=== PATIENT | female | born 1955 | race Caucasian/White ===

== ENCOUNTER 2018-06-08 15:36 | Observation (INO) | payer MEDICAID ==
[2018-06-08] MEDS ORDERED: Labetalol 5 mg/ml Inj 20ML IV STA ×2 (16:06→17:34)
[2018-06-08] MEDS ORDERED: Sodium Chloride 0.9% 1,000 ML IV SCH (16:15)
[2018-06-08] MEDS ORDERED: Labetalol 5mg/ml (4ml) ONE (16:23)
--- NOTE | 2018-06-08 16:36 | ED PDOC ---
Arrival/HPI - General Chief Complaint: Chest Pain Time Seen by Provider: 06/08/18 15:38 Historian: Patient - History of Present Illness Narrative History of Present Illness (Text): 06/08/18 16:31 62 year old female, whose past medical history includes hypertension, hyperlipidemia, diabetes, and rheumatoid arthritis, presents to the emergency department for evaluation of chest pain, from earlier in the day. Patient states she woke up this morning and felt chest pain to the left side of her chest, with associated lightheadedness. Patient states pain only lasted a few seconds, and was very sharp. Patient states the pain occurred again around 13:00. Patient informs of fatigue for the past 2 weeks. Patient also informs of left lower back pain that radiates down her leg. Patient states she has been having foul smelling urine, urinary frequency changes, and burning upon urination. Patient denies any unilateral weakness, numbness, headache, dizziness, visual complaints, trouble speaking, gait issues, or any other com plaints. Time/Duration: 4-6 hours Symptom Course: Unchanged Quality: Stabbing Past Medical History - Provider Review Nursing Documentation Reviewed: Yes - Cardiac Hx Cardiac Disorders: Yes Hx Hypertension: Yes - Pulmonary Hx Respiratory Disorders: No - Neurological Hx Neurological Disorder: No - HEENT Hx HEENT Disorder: No - Renal Hx Renal Disorder: No - Endocrine/Metabolic Hx Endocrine Disorders: Yes Hx Diabetes Mellitus Type 2: Yes - Hematological/Oncological Hx Blood Disorders: No - Integumentary Hx Dermatological Disorder: No - Musculoskeletal/Rheumatological Hx Musculoskeletal Disorders: Yes Hx Rheumatoid Arthritis: Yes - Gastrointestinal Hx Gastrointestinal Disorders: No - Genitourinary/Gynecological Hx Genitourinary Disorders: No - Psychiatric Hx Psychophysiologic Disorder: No Hx Substance Use: No Family/Social History - Physician Review Nursing Documentation Reviewed: Yes Family/Social History: No Known Family HX Smoking Status: Never Smoked Hx Alcohol Use: No Hx Substance Use: No Allergies/Home Meds Allergies/Adverse Reactions: Allergies No Known Allergies Allergy (Verified 06/08/18 15:45) Home Medications: Home Meds Medication Instructions Recorded Confirmed Metoprolol Tartrate [Lopressor] 50 mg PO BID 06/08/18 06/08/18 Simvastatin 10 mg PO DAILY 06/08/18 06/08/18 metFORMIN [glucOPHAGE] 500 mg PO BID 06/08/18 06/08/18 Review of Systems - Physician Review All systems were reviewed & negative as marked: Yes - Review of Systems Genitourinary Female: Dysuria, Frequency, Other (foul smelling urine) Neurological: absent: Headache, Dizziness, Focal Weakness (no unilateral weakness), Gait Changes, Speech Changes, Other (no numbness) Physical Exam Vital Signs Reviewed: Yes Vital Signs Temp Pulse Resp BP Pulse Ox 06/08/18 16:28 85 190/105 H 06/08/18 15:45 98.9 F 77 17 224/104 H 98 Temperature: Afebrile Blood Pressure: Hypertensive Pulse: Regular Respiratory Rate: Normal Appearance: Positive for: Well-Appearing, Non-Toxic, Comfortable Pain Distress: None Mental Status: Positive for: Alert and Oriented X 3 - Systems Exam Head: Present: Atraumatic, Normocephalic Pupils: Present: PERRL Extroacular Muscles: Present: EOMI Conjunctiva: Present: Normal Mouth: Present: Moist Mucous Membranes Neck: Present: Normal Range of Motion Respiratory/Chest: Present: Clear to Auscultation, Good Air Exchange. No: Respiratory Distress, Accessory Muscle Use Cardiovascular: Present: Regular Rate and Rhythm, Normal S1, S2. No: Murmurs Abdomen: No: Tenderness, Distention, Peritoneal Signs Back: Present: Normal Inspection Upper Extremity: Present: Normal Inspection. No: Cyanosis, Edema Lower Extremity: Present: Normal Inspection. No: Edema Neurological: Present: GCS=15, CN II-XII Intact, Speech Normal Skin: Present: Warm, Dry, Normal Color. No: Rashes Psychiatric: Present: Alert, Oriented x 3, Normal Insight, Normal Concentration Medical Decision Making ED Course and Treatment: 06/08/18 16:44 Impression: 62 year old female presents with chest pain, and urinary symptoms. Differential Diagnosis included but are not limited to: Chest pain- rule out ACS and hypertensive urgency Back pain- rule out sciatica vs kidney stone/ pyelonephritis and UTI Plan: -- CT ABD& Pelvis -- CT Head -- EKG -- Chest X-ray -- Labetolol IV -- Urinalysis -- Reassess and disposition Prior Visits: Notes and results from previous visits were reviewed. Progress Notes: 06/08/18 17:11 Patient improved after Labetolol. Glucose elevated and will treat with Insulin. 06/08/18 17:34 Orthostatics were completed. Patient felt dizzy when she stood up. Her blood pressure included to 199/95. Labetolol IV ordered. CT results pending. Case discussed with Dr. Laura who will accept patient to his service. 06/08/18 18:43 EXAM: CT Head without Intravenous Contrast. IMPRESSION: 1. There is generalized parenchymal atrophy noted as demonstrated by symmetrical dilatation of ventricles and sulci. 2. Chronic periventricular and subcortical microvascular disease is seen. 3. No acute intracranial pathology. Electronically signed on Jun 08, 2018 6:41:30 PM EST by: Kimani Earl M.D., [place] Certified By ABR & CBC[employer] Fellowship Trained MRI and CT Specialist 06/08/18 18:52 EXAM: CT Abdomen and Pelvis Without IV contrast IMPRESSION: 1. Enteritis. Infectious and inflammatory etiologies are considered. Consider consultation with GI service. 2. Fibroid uterus. 3. No urinary calculi. Electronically signed on Jun 08, 2018 6:50:26 PM EST by: Kimani Earl M.D., [place] Certified By ABR & CBC[employer] Fellowship Trained MRI and CT Specialist - RAD Interpretation Radiology Orders: 06/08/18 16:04 CHEST PORTABLE [RAD] Stat 06/08/18 16:06 HEAD W/O CONTRAST [CT] Stat 06/08/18 16:26 ABD & PELVIS W/O PO OR IV CONT [CT] Stat - Medication Orders Current Medication Orders: Discontinued Medications Labetalol HCl (Trandate) 20 mg IV STAT STA Stop: 06/08/18 16:07 Last Admin: 06/08/18 16:28 Dose: 20 mg eMAR Start Stop Document 06/08/18 16:28 GMI (Rec: 06/08/18 16:29 [id number]) Intravenous Solution Start Date 06/08/18 Start Time 16:28 End Date 06/08/18 End time 16:35 Total Infusion Time 7 MAR Pulse and Blood Pressure Document 06/08/18 16:28 GMI (Rec: 06/08/18 16:29 [id number]) Pulse Pulse Rate (60-90) 85 Blood Pressure Blood Pressure (100/60-150/90) 190/105 - Scribe Statement The provider has reviewed the documentation as recorded by the [facility] Provider Scribe Attestation: All medical record entries made by the Scribe were at my direction and personally dictated by me. I have reviewed the chart and agree that the record accurately reflects my personal performance of the history, physical exam, medical decision making, and the department course for this patient. I have also personally directed, reviewed, and agree with the discharge instructions and disposition. Disposition/Present on Arrival - Present on Arrival Any Indicators Present on Arrival: Yes History of DVT/PE: No History of Uncontrolled Diabetes: Yes Urinary Catheter: No History of Decub. Ulcer: No History Surgical Site Infection Following: None - Disposition Have Diagnosis and Disposition been Completed?: Yes Diagnosis: Hypertensive urgency, Uncontrolled diabetes mellitus, Chest pain Disposition: HOSPITALIZED Disposition Time: 18:19 Patient Plan: Admission Condition: FAIR
[2018-06-08 16:47] LABS: URINE BILIRUBIN NEGATIVE (NEGATIVE); URINE BLOOD NEGATIVE (NEGATIVE); URINE GLUCOSE (UA) >=1000 mg/dL (NEGATIVE); URINE LEUKOCYTE ESTERASE NEGATIVE Leu/uL (NEGATIVE); URINE PROTEIN NEGATIVE mg/dL (<30 mg/dL); URINE UROBILINOGEN 0.2 E.U./dL (<1 E.U./dL)
[2018-06-08 16:47] LABS: BASO # 0.02 K/mm3 (0.0-2.0); BASO % 0.2 % (0.0-3.0); EOS # 0.2 (0.0-0.7); EOS % 1.6 % (1.5-5.0); GRAN # 6.55 (1.4-6.5); GRAN % 61.7 % (50.0-68.0); HEMOGLOBIN 13.4 g/dL (12.0-16.0); LYMPH # 3.2 (1.2-3.4); LYMPH % 29.9 % (22.0-35.0); MEAN CELL VOLUME 93.9 fl (80.0-105.0); MEAN CORPUSCULAR HEMOGLOBIN 31.7 pg (25.0-35.0); MEAN CORPUSCULAR HGB CONC 33.8 g/dl (31.0-37.0); MEAN PLATELET VOLUME 9.6 fl (7.0-11.0); MONO # 0.7 (0.1-0.6); MONO % 6.6 % (1.0-6.0); RBC 4.23 10^6/uL (3.5-6.1); WHITE BLOOD COUNT 10.6 10^3/uL (4.5-11.0)
[2018-06-08 16:48] LABS: URINE APPEARANCE CLEAR (CLEAR); URINE COLOR YELLOW (YELLOW)
[2018-06-08 16:52] LABS: TROPONIN I < 0.01 ng/mL
[2018-06-08 16:59] LABS: ALB/GLOB RATIO 1.1 (1.1-1.8); ALBUMIN 4.1 g/dL (3.0-4.8); ALT/SGPT 25 U/L (7-56); AST/SGOT 28 U/L (14-36); BLOOD UREA NITROGEN 20 mg/dL (7-21); CALCIUM 9.3 mg/dL (8.4-10.5); GFR NON-AFRICAN AMERICAN > 60
[2018-06-08] MEDS ORDERED: Insulin Regular 1 UNITS/0.01 ML ML SC STA (17:15)
--- NOTE | 2018-06-08 19:30 | CP.PCM.HP ---
<AlbertKaroander - Last Filed: 06/08/18 19:52> History of Present Illness - History of Present Illness History of Present Illness: PGY1 History and Physical Exam Note for Attending Physician Dr. Beltrán Patient is a 62-year-old Female with PMH Type 2 Diabetes Mellitus, Hypertension, Hyperlipidemia, Rheumatoid Arthritis, who presents to [facility] ED with complaint of chest pain that started this morning. Patient states the pain came on suddenly this morning and was intermittent. Patient localized the pain to the left pectoralis muscle, was sharp in quality, and quantified the pain at 9/10. Patient also complains of generalized abdominal pain that is constant 9/10 and described it as feeling "bloated." Patient states she takes Metformin and gets diarrhea regularly, so she took half of the dose today. Of note, patient also complaints of left-sided low back pain that radiates down her leg. Patient states her back pain has been constant and worsens with any movement. Patient also complains of dysuria, frequency, and fowel-smelling urine. Patient also complains of headache that came on a few hours ago while in the ED, but otherwise denies any recent falls, sick contacts, trauma, fever, chills, fatigue, nausea, vomiting, constipation, bloody stools, shortness of breath and/or dizziness. PMH: T2DM, HTN, HLD, RA Home Medications: Simvastatin 10mg PO daily, Lopressor 50mg PO BID, Metformin 500mg PO BID Allergies: NKDA Social: Denies ETOH, denies history and/or current tobacco use PMD: Dr. Maddox Present on Admission - Present on Admission Any Indicators Present on Admission: No History of DVT/PE: No History of Uncontrolled Diabetes: Yes Urinary Catheter: No Decubitus Ulcer Present: No History Surgical Site Infection Following: None Review of Systems - Review of Systems All systems: reviewed and no additional remarkable complaints except - Constitutional Constitutional: As Per HPI - EENT Eyes: As Per HPI - Breasts Breasts: As Per HPI - Cardiovascular Cardiovascular: As Per HPI - Respiratory Respiratory: As Per HPI - Gastrointestinal Gastrointestinal: As Per HPI - Genitourinary Genitourinary: As Per HPI - Musculoskeletal Musculoskeletal: As Per HPI - Integumentary Integumentary: As Per HPI Past Patient History - Past Social History Smoking Status: Never Smoked - CARDIAC Hx Cardiac Disorders: Yes Hx Hypertension: Yes - PULMONARY Hx Respiratory Disorders: No - NEUROLOGICAL Hx Neurological Disorder: No - HEENT Hx HEENT Problems: No - RENAL Hx Chronic Kidney Disease: No - ENDOCRINE/METABOLIC Hx Endocrine Disorders: Yes Hx Diabetes Mellitus Type 2: Yes - HEMATOLOGICAL/ONCOLOGICAL Hx Blood Disorders: No - INTEGUMENTARY Hx Dermatological Problems: No - MUSCULOSKELETAL/RHEUMATOLOGICAL Hx Musculoskeletal Disorders: Yes Hx Rheumatoid Arthritis: Yes - GASTROINTESTINAL Hx Gastrointestinal Disorders: No - GENITOURINARY/GYNECOLOGICAL Hx Genitourinary Disorders: No - PSYCHIATRIC Hx Psychophysiologic Disorder: No Hx Substance Use: No Meds Allergies/Adverse Reactions: Allergies Allergy/AdvReac Type Severity Reaction Status Date / Time No Known Allergies Allergy Verified 06/08/18 15:45 Physical Exam - Constitutional Appears: Non-toxic, No Acute Distress - Head Exam Head Exam: ATRAUMATIC, NORMAL INSPECTION, NORMOCEPHALIC - Eye Exam Eye Exam: Conjunctival injection (mild), EOMI, PERRL - ENT Exam ENT Exam: Mucous Membranes Moist, Normal Exam - Neck Exam Neck exam: Positive for: Full Rom, Normal Inspection. Negative for: Lymphadenopathy - Respiratory Exam Respiratory Exam: Clear to Auscultation Bilateral, NORMAL BREATHING PATTERN. absent: Accessory Muscle Use, Chest Wall Tenderness, Decreased Breath Sounds, Rales, Rhonchi, Wheezes, Respiratory Distress - Cardiovascular Exam Cardiovascular Exam: REGULAR RHYTHM (84bpm), RRR, +S1, +S2. absent: Diastolic murmur, Systolic Murmur - GI/Abdominal Exam GI & Abdominal Exam: Normal Bowel Sounds, Tenderness (generalized). absent: Distended, Firm, Guarding, Organomegaly, Rebound Additional comments: No suprapubic tenderness - Extremities Exam Extremities exam: Positive for: normal inspection, pedal pulses present. Ne gative for: calf tenderness, pedal edema Additional comments: Hip joint (R) tender to palpation Positive straight leg raise (R) - Back Exam Back exam: CVA tenderness (R), NORMAL INSPECTION, paraspinal tenderness - Neurological Exam Neurological exam: Alert, CN II-XII Intact, Oriented x3 - Psychiatric Exam Psychiatric exam: Normal Affect, Normal Mood - Skin Skin Exam: Dry, Intact, Normal Color Results - Vital Signs Recent Vital Signs: Last Vital Signs Temp 98.9 F 06/08/18 15:45 Pulse 84 11/22/18 19:05 Resp 19 06/08/18 19:05 BP 163/87 H 06/08/18 19:05 Pulse Ox 97 06/08/18 19:05 - Labs Result Diagrams: 06/08/18 16:23 06/08/18 16:23 Labs: Laboratory Results - last 24 hr 06/08/18 06/08/18 06/08/18 16:23 16:23 16:42 WBC 10.6 RBC 4.23 Hgb 13.4 Hct 39.7 MCV 93.9 MCH 31.7 MCHC 33.8 RDW 13.0 Plt Count 274 MPV 9.6 Gran % 61.7 Lymph % (Auto) 29.9 [place] % (Auto) 6.6 H Eos % (Auto) 1.6 Baso % (Auto) 0.2 Gran # 6.55 H Lymph # (Auto) 3.2 [place] # (Auto) 0.7 H Eos # (Auto) 0.2 Baso # (Auto) 0.02 Sodium 136 Potassium 4.1 Chloride 103 Carbon Dioxide 25 Anion Gap 12 BUN 20 Creatinine 0.9 Est GFR ( Amer) > 60 Est GFR (Non-Af Amer) > 60 POC Glucose (mg/dL) Random Glucose 320 H* Calcium 9.3 Magnesium 1.8 Total Bilirubin 0.4 AST 28 ALT 25 Alkaline Phosphatase 92 Lactate Dehydrogenase 327 L Total Creatine Kinase 31 L Troponin I < 0.01 Total Protein 7.7 Albumin 4.1 Globulin 3.6 Albumin/Globulin Ratio 1.1 Urine Color Yellow Urine Appearance Clear Urine pH 6.0 Ur Specific Morris 1.015 Urine Protein Negative Urine Glucose (UA) >=1000 Urine Ketones Trace H Urine Blood Negative Urine Nitrate Negative Urine Bilirubin Negative Urine Urobilinogen 0.2 Ur Leukocyte Esterase Negative 06/08/18 16:48 WBC RBC Hgb Hct MCV MCH MCHC RDW Plt Count MPV Gran % Lymph % (Auto) [place] % (Auto) Eos % (Auto) Baso % (Auto) Gran # Lymph # (Auto) [place] # (Auto) Eos # (Auto) Baso # (Auto) Sodium Potassium Chloride Carbon Dioxide Anion Gap BUN Creatinine Est GFR ( Amer) Est GFR (Non-Af Amer) POC Glucose (mg/dL) 257 H Random Glucose Calcium Magnesium Total Bilirubin AST ALT Alkaline Phosphatase Lactate Dehydrogenase Total Creatine Kinase Troponin I Total Protein Albumin Globulin Albumin/Globulin Ratio Urine Color Urine Appearance Urine pH Ur Specific Morris Urine Protein Urine Glucose (UA) Urine Ketones Urine Blood Urine Nitrate Urine Bilirubin Urine Urobilinogen Ur Leukocyte Esterase Assessment & Plan - Assessment and Plan (Free Text) Assessment: Patient is a 62-year-old Female with PMH Type 2 Diabetes Mellitus, Hypertension, Hyperlipidemia, Rheumatoid Arthritis, who presents to [facility] ED with complaint of chest pain that started this morning. Patient states the pain came on suddenly this morning and was intermittent. Patient localized the pain to the left pectoralis muscle, was sharp in quality, and quantified the pain at 9/10. Patient also complains of generalized abdominal pain that is constant 9/10 and described it as feeling "bloated." Patient states she takes Metformin and gets diarrhea regularly, so she took half of the dose today. Of note, patient also complaints of left-sided low back pain that radiates down her leg. Hypertension Urgency - Likely secondary to medication non-compliance - JJ=498/104 - ED: Labetalol 40mg IV stat given - BP repeat = 164/87 - CT head without contrast: Pending - Monitor vitals ACS Rule-Out - Patient has multiple risk factors (HLD, HTN, Diabetes) - F/U HgbA1C - F/U Lipid Panel - Troponin negative x1 - Repeat serial troponins - Cardiology (Dr. Gordon) consulted; recommendations appreciated - Monitor Diabetes Mellitus Type 2 (uncontrolled) - HgA1c F/U - BG = 320 - ISS (medium) - Hypoglycemia protocol - Accu checks Abdominal pain / Rule-Out Nephrolithiasis - Patient afebrile - CVA tenderness (R) on exam - Frequency, urgency, and dysuria on HPI - U/A unremarkable - Follow-up Urine Cultures - CT abdomen/pelvis: completed. Pending report - Abdominal ultrasound pending PPx: -GI: Protonix 40mg Daily -DVT: SCD, Lovenox SC Discussed with Dr. Jerel Price PGY1 <Radha Beltrán - Last Filed: 06/09/18 06:25> Results - Vital Signs Recent Vital Signs: Last Vital Signs Temp 98.5 F 06/09/18 00:01 Pulse 79 06/09/18 02:00 Resp 20 06/09/18 00:01 BP 146/76 06/09/18 00:01 Pulse Ox 96 06/09/18 00:01 - Labs Result Diagrams: 06/09/18 04:25 06/09/18 04:25 Labs: Laboratory Results - last 24 hr 06/08/18 06/08/18 06/08/18 16:23 16:23 16:42 WBC 10.6 RBC 4.23 Hgb 13.4 Hct 39.7 MCV 93.9 MCH 31.7 MCHC 33.8 RDW 13.0 Plt Count 274 MPV 9.6 Gran % 61.7 Lymph % (Auto) 29.9 [place] % (Auto) 6.6 H Eos % (Auto) 1.6 Baso % (Auto) 0.2 Gran # 6.55 H Lymph # (Auto) 3.2 [place] # (Auto) 0.7 H Eos # (Auto) 0.2 Baso # (Auto) 0.02 Sodium 136 Potassium 4.1 Chloride 103 Carbon Dioxide 25 Anion Gap 12 BUN 20 Creatinine 0.9 Est GFR ( Amer) > 60 Est GFR (Non-Af Amer) > 60 POC Glucose (mg/dL) Random Glucose 320 H* Calcium 9.3 Phosphorus Magnesium 1.8 Total Bilirubin 0.4 AST 28 ALT 25 Alkaline Phosphatase 92 Lactate Dehydrogenase 327 L Total Creatine Kinase 31 L Troponin I < 0.01 Total Protein 7.7 Albumin 4.1 Globulin 3.6 Albumin/Globulin Ratio 1.1 Triglycerides Cholesterol LDL Cholesterol Direct HDL Cholesterol Urine Color Yellow Urine Appearance Clear Urine pH 6.0 Ur Specific Morris 1.015 Urine Protein Negative Urine Glucose (UA) >=1000 Urine Ketones Trace H Urine Blood Negative Urine Nitrate Negative Urine Bilirubin Negative Urine Urobilinogen 0.2 Ur Leukocyte Esterase Negative 06/08/18 06/08/18 06/08/18 16:48 18:00 22:01 WBC RBC Hgb Hct MCV MCH MCHC RDW Plt Count MPV Gran % Lymph % (Auto) [place] % (Auto) Eos % (Auto) Baso % (Auto) Gran # Lymph # (Auto) [place] # (Auto) Eos # (Auto) Baso # (Auto) Sodium Potassium Chloride Carbon Dioxide Anion Gap BUN Creatinine Est GFR ( Amer) Est GFR (Non-Af Amer) POC Glucose (mg/dL) 257 H Random Glucose Calcium Phosphorus Magnesium Total Bilirubin AST ALT Alkaline Phosphatase Lactate Dehydrogenase Total Creatine Kinase Troponin I < 0.01 Total Protein Albumin Globulin Albumin/Globulin Ratio Triglycerides 485 H Cholesterol 213 H LDL Cholesterol Direct 123 HDL Cholesterol 38 Urine Color Urine Appearance Urine pH Ur Specific Morris Urine Protein Urine Glucose (UA) Urine Ketones Urine Blood Urine Nitrate Urine Bilirubin Urine Urobilinogen Ur Leukocyte Esterase 06/09/18 06/09/18 04:25 04:25 WBC 9.0 RBC 4.12 Hgb 12.8 Hct 38.2 MCV 92.7 MCH 31.1 MCHC 33.5 RDW 13.1 Plt Count 242 MPV 9.2 Gran % 50.0 Lymph % (Auto) 38.7 H [place] % (Auto) 9.4 H Eos % (Auto) 1.8 Baso % (Auto) 0.1 Gran # 4.48 Lymph # (Auto) 3.5 H [place] # (Auto) 0.8 H Eos # (Auto) 0.2 Baso # (Auto) 0.01 Sodium 139 Potassium 3.9 Chloride 105 Carbon Dioxide 27 Anion Gap 11 BUN 16 Creatinine 0.7 Est GFR ( Amer) > 60 Est GFR (Non-Af Amer) > 60 POC Glucose (mg/dL) Random Glucose 239 H Calcium 9.0 Phosphorus 4.2 Magnesium 1.9 Total Bilirubin 0.5 AST 21 ALT 32 Alkaline Phosphatase 80 Lactate Dehydrogenase Total Creatine Kinase Troponin I < 0.01 Total Protein 7.2 Albumin 3.7 Globulin 3.4 Albumin/Globulin Ratio 1.1 Triglycerides Cholesterol LDL Cholesterol Direct HDL Cholesterol Urine Color Urine Appearance Urine pH Ur Specific Morris Urine Protein Urine Glucose (UA) Urine Ketones Urine Blood Urine Nitrate Urine Bilirubin Urine Urobilinogen Ur Leukocyte Esterase Attending/Attestation - Attestation I have personally seen and examined this patient.: Yes I have fully participated in the care of the patient.: Yes I have reviewed all pertinent clinical information: Yes Notes (Text): 06/09/18 06:12 Patient was seen when she was in bed 261-02. Medical record was reviewed. States that she precancerous lump removed from both breast. Agree with history,physical examination,assessment and plan
[2018-06-08 20:31] LABS: HDL CHOLESTEROL 38 mg/dL (29-60)
[2018-06-08 20:42] LABS: LDL CHOLESTEROL 123 mg/dL (0-129)
[2018-06-08] MEDS: Insulin Lispro (humaLOG) MEDIUM Coverage SC SCH (21:47)
[2018-06-09 01:00] VITALS: RESP 20
[2018-06-09 04:37] LABS: BASO # 0.01 K/mm3 (0.0-2.0); BASO % 0.1 % (0.0-3.0); EOS # 0.2 (0.0-0.7); EOS % 1.8 % (1.5-5.0); GRAN # 4.48 (1.4-6.5); HEMOGLOBIN 12.8 g/dL (12.0-16.0); LYMPH # 3.5 (1.2-3.4); LYMPH % 38.7 % (22.0-35.0); MEAN CELL VOLUME 92.7 fl (80.0-105.0); MEAN CORPUSCULAR HEMOGLOBIN 31.1 pg (25.0-35.0); MEAN CORPUSCULAR HGB CONC 33.5 g/dl (31.0-37.0); MEAN PLATELET VOLUME 9.2 fl (7.0-11.0); MONO # 0.8 (0.1-0.6); MONO % 9.4 % (1.0-6.0); RBC 4.12 10^6/uL (3.5-6.1); RED CELL DISTRIBUTION WIDTH 13.1 % (11.5-14.5)
[2018-06-09 05:02] LABS: TROPONIN I < 0.01 ng/mL
[2018-06-09 05:04] LABS: ALB/GLOB RATIO 1.1 (1.1-1.8); ALBUMIN 3.7 g/dL (3.0-4.8); ALT/SGPT 32 U/L (7-56); AST/SGOT 21 U/L (14-36); BLOOD UREA NITROGEN 16 mg/dL (7-21); GFR NON-AFRICAN AMERICAN > 60
[2018-06-09 06:29] VITALS: O2SAT 99
--- NOTE | 2018-06-09 08:05 | CT ---
Date of service: 06/08/2018 PROCEDURE: CT HEAD WITHOUT CONTRAST. HISTORY: dizziness, hypertensive COMPARISON: None available. TECHNIQUE: Axial computed tomography images were obtained through the head/brain without intravenous contrast. Radiation dose: Total exam DLP = 811.58 mGy-cm. This CT exam was performed using one or more of the following dose reduction techniques: Automated exposure control, adjustment of the mA and/or kV according to patient size, and/or use of iterative reconstruction technique. FINDINGS: HEMORRHAGE: No intracranial hemorrhage. BRAIN: No mass effect or edema. Chronic periventricular white matter ischemic disease. VENTRICLES: Unremarkable. No hydrocephalus. CALVARIUM: Unremarkable. PARANASAL SINUSES: Unremarkable as visualized. No significant inflammatory changes. MASTOID AIR CELLS: Unremarkable as visualized. No inflammatory changes. OTHER FINDINGS: None. IMPRESSION: No intracranial hemorrhage.
[2018-06-09 08:09] LABS: HDL CHOLESTEROL 38 mg/dL (29-60)
[2018-06-09 08:20] LABS: LDL CHOLESTEROL 109 mg/dL (0-129)
[2018-06-09] MEDS: Insulin Lispro (humaLOG) MEDIUM Coverage SC SCH ×2 (08:33→12:26)
--- NOTE | 2018-06-09 08:36 | CT ---
Date of service: 06/08/2018 PROCEDURE: CT Abdomen and Pelvis without intravenous contrast HISTORY: left flank pain COMPARISON: None. TECHNIQUE: Technique. Contrast dose: Radiation dose: Total exam DLP = 378.18 mGy-cm. This CT exam was performed using one or more of the following dose reduction techniques: Automated exposure control, adjustment of the mA and/or kV according to patient size, and/or use of iterative reconstruction technique. FINDINGS: LOWER THORAX: Unremarkable. LIVER: Unremarkable. No gross lesion or ductal dilatation. GALLBLADDER AND BILE DUCTS: Unremarkable. PANCREAS: Unremarkable. No gross lesion or ductal dilatation. SPLEEN: Unremarkable. ADRENALS: Unremarkable. No mass. KIDNEYS AND URETERS: Unremarkable. No hydronephrosis. No solid mass. VASCULATURE: Unremarkable. No aortic aneurysm. No aortic atherosclerotic calcification or mural plaque present. BOWEL: Unremarkable. No obstruction. No gross mural thickening. APPENDIX: Unremarkable. Normal appendix. PERITONEUM: Unremarkable. No free fluid. No free air. LYMPH NODES: Unremarkable. No enlarged lymph nodes. BLADDER: Unremarkable. REPRODUCTIVE: Calcified leiomyomatous uterus.. BONES: No acute fracture. OTHER FINDINGS: None. IMPRESSION: No acute pathology.
--- NOTE | 2018-06-09 09:00 | US ---
HISTORY: Abdominal pain COMPARISON: CT abdomen and pelvis without contrast performed 06/08/18 TECHNIQUE: Sonographic evaluation of the abdomen. FINDINGS: LIVER: Measures 16.3 cm in sagittal dimension. Echogenic liver may be seen in setting of hepatic parenchymal disease or fatty infiltration. No focal hepatic mass identified. The main portal vein appears patent with normal directional flow. No intrahepatic bile duct dilatation. GALLBLADDER: No gallstones. No gallbladder wall thickening. Negative sonographic Banda's sign as assessed by the radiology physician. COMMON BILE DUCT: Measures 3 mm. PANCREAS: Not well visualized. RIGHT KIDNEY: Measures 10.3 x 4.4 x 5.9cm. No obstructing calculus or hydronephrosis identified. LEFT KIDNEY: Measures 10.7 x 4.4 x 7.2cm. No obstructing calculus or hydronephrosis identified. SPLEEN: Measures approximately 10.6 cm. AORTA: Limited views appear unremarkable. IVC: Limited views appear unremarkable. OTHER FINDINGS: None. IMPRESSION: Echogenic liver may be seen in setting of hepatic parenchymal disease or fatty infiltration.
--- NOTE | 2018-06-09 09:03 | RAD ---
HISTORY: chest pain COMPARISON: None available. TECHNIQUE: Chest, one view. FINDINGS: LUNGS: No focal consolidation. Probable calcified granulomas/small calcified hilar lymph nodes. Please note that chest x-ray has limited sensitivity for the detection of pulmonary masses. PLEURA: No significant pleural effusion identified. No definite pneumothorax . CARDIOVASCULAR: Cardiomegaly. Atherosclerotic calcification present. OSSEOUS STRUCTURES: Degenerative changes of the spine. VISUALIZED UPPER ABDOMEN: Unremarkable. OTHER FINDINGS: None. IMPRESSION: Cardiomegaly. Probable calcified granulomas/small calcified hilar lymph nodes.
--- NOTE | 2018-06-09 09:25 | CARD ---
APPROVED REPORT Date of service: 06/08/2018 EKG Measurement Heart [id number] <Conclusion> Normal sinus rhythm Possible Left atrial enlargement Nonspecific ST abnormality PRWP Q in lll Baseline artifact present
[2018-06-09] MEDS ORDERED: Enoxaparin 40 mg Syringe SC SCH (10:00)
[2018-06-09] MEDS ORDERED: Pantoprazole 40 mg EC Tab PO SCH (10:00)
--- NOTE | 2018-06-09 11:54 | CARD ---
APPROVED REPORT Date of service: 06/09/2018 EXAM: Two-dimensional and M-mode echocardiogram with Doppler and color Doppler. INDICATION Chest Pain 2D DIMENSIONS Left Atrium (2D)4.0 (1.6-4.0cm)IVSd1.4 (0.7-1.1cm) LVDd4.0 (3.9-5.9cm)PWd1.1 (0.7-1.1cm) LVDs2.7 (2.5-4.0cm)FS (%) 33.2 % LVEF (%)62.4 (>50%) M-Mode DIMENSIONS Aortic Root2.10 (2.2-3.7cm)Aortic Cusp Exc.1.60 (1.5-2.0cm) Aortic Valve AoV Peak Xthfimpq340.0cm/Ginny Peak GR.5mmHg Mitral Valve MV E Pklsbhyv90.5cm/sMV A Wapzmemf45.1cm/sE/A ratio0.7 TDI E/Lateral E'0.0E/Medial E'0.0 Tricuspid Valve TR Peak Iasalhqh523ys/sRAP [id number] Peak Gr.20mmHg [id number] LEFT VENTRICLE The left ventricle is normal size. There is mild concentric left ventricular Septal hypertrophy. The left ventricular function is normal.EF-60-65% There is normal LV segmental wall motion. Transmitral Doppler flow pattern is Grade III-reversible restrictive diastolic dysfunction. No left ventricle thrombus noted on this study. There is no ventricular septal defect visualized. There is no left ventricular aneurysm. There is no mass noted in the left ventricle. RIGHT VENTRICLE The right ventricle is normal size. There is normal right ventricular wall thickness. The right ventricular systolic function is normal. ATRIA The left atrium is borderline dilated. The right atrium size is normal. The interatrial septum is intact with no evidence for an atrial septal defect. AORTIC VALVE The aortic valve is thickened but opens well. The aortic valve is mildly sclerotic. No aortic regurgitation is present. There is no aortic valvular stenosis. There is no aortic valvular vegetation. MITRAL VALVE The mitral valve is thickened but opens well. Mitral regurgitation is trace. There is no mitral valve stenosis. There is no evidence of mitral valve prolapse. TRICUSPID VALVE The tricuspid valve leaflets are thickened , but open well. There is trace to mild tricuspid regurgitation.RVSP-30 mmpof Hg. There is no tricuspid valve stenosis. There is no tricuspid valve prolapse or vegetation. PULMONIC VALVE The pulmonary valve is normal in structure. There is no pulmonic valvular regurgitation. There is no pulmonic valvular stenosis. GREAT VESSELS The aortic root is normal in size. The ascending aorta is normal in size. The pulmonary artery is normal. The IVC is normal in size and collapses >50% with inspiration. PERICARDIAL EFFUSION There is no pleural effusion. There is no pericardial effusion. <Conclusion> Normal; chamber Size. EF-60-65% Mitral regurgitation is trace. There is trace to mild tricuspid regurgitation.RVSP-30 mmpof Hg. The IVC is normal in size and collapses >50% with inspiration. There is no pericardial effusion. No Vegetation or thrombus noted.
[2018-06-09 13:44] VITALS: BP 133/72; PULSE 69; TEMP 97.8
[2018-06-09] MEDS ORDERED: Influenza Vaccine 60 mcg/0.5 mL SYR (4YR UP) IM ONE (15:47)
[2018-06-09] MEDS ORDERED: Pneumococcal 23-Valent Vaccine IM ONE (15:48)
--- NOTE | 2018-06-09 16:15 | CP.PCM.DIS ---
<Dayo Barrera - Last Filed: 06/09/18 16:19> Provider - Provider Date of Admission: 06/08/18 18:19 Attending physician: Tyson Laura MD Time Spent in preparation of Discharge (in minutes): 40 Diagnosis - Discharge Diagnosis (1) Chest pain Status: Acute Priority: Low (2) Hypertensive urgency Status: Acute Priority: High (3) Uncontrolled diabetes mellitus Status: Chronic Priority: High Hospital Course - Lab Results Lab Results: Micro Results 06/08/18 16:42 Urine Urine Culture - Final No Growth (<1,000 CFU/ML) Most Recent Lab Values WBC 9.0 10^3/uL (4.5-11.0) 06/09/18 04:25 RBC 4.12 10^6/uL (3.5-6.1) 06/09/18 04:25 Hgb 12.8 g/dL (12.0-16.0) 06/09/18 04:25 Hct 38.2 % (36.0-48.0) 06/09/18 04:25 MCV 92.7 fl (80.0-105.0) 06/09/18 04:25 MCH 31.1 pg (25.0-35.0) 06/09/18 04:25 MCHC 33.5 g/dl (31.0-37.0) 06/09/18 04:25 RDW 13.1 % (11.5-14.5) 06/09/18 04:25 Plt Count 242 10^3/uL (120.0-450.0) 06/09/18 04:25 MPV 9.2 fl (7.0-11.0) 06/09/18 04:25 Gran % 50.0 % (50.0-68.0) 06/09/18 04:25 Lymph % (Auto) 38.7 % (22.0-35.0) H 06/09/18 04:25 [place] % (Auto) 9.4 % (1.0-6.0) H 06/09/18 04:25 Eos % (Auto) 1.8 % (1.5-5.0) 06/09/18 04:25 Baso % (Auto) 0.1 % (0.0-3.0) 06/09/18 04:25 Gran # 4.48 (1.4-6.5) 06/09/18 04:25 Lymph # (Auto) 3.5 (1.2-3.4) H 06/09/18 04:25 [place] # (Auto) 0.8 (0.1-0.6) H 06/09/18 04:25 Eos # (Auto) 0.2 (0.0-0.7) 06/09/18 04:25 Baso # (Auto) 0.01 K/mm3 (0.0-2.0) 06/09/18 04:25 Sodium 139 mmol/L (132-148) 06/09/18 04:25 Potassium 3.9 mmol/L (3.6-5.0) 06/09/18 04:25 Chloride 105 mmol/L (98-107) 06/09/18 04:25 Carbon Dioxide 27 mmol/L (21-33) 06/09/18 04:25 Anion Gap 11 (10-20) 06/09/18 04:25 BUN 16 mg/dL (7-21) 06/09/18 04:25 Creatinine 0.7 mg/dl (0.7-1.2) 06/09/18 04:25 Est GFR ( Amer) > 60 06/09/18 04:25 Est GFR (Non-Af Amer) > 60 06/09/18 04:25 POC Glucose (mg/dL) 207 mg/dL (65-110) H 06/09/18 12:15 Random Glucose 239 mg/dL (70-110) H 06/09/18 04:25 Hemoglobin A1c 9.3 % (4.2-6.5) H 06/09/18 04:25 Calcium 9.0 mg/dL (8.4-10.5) 06/09/18 04:25 Phosphorus 4.2 mg/dL (2.5-4.5) 06/09/18 04:25 Magnesium 1.9 mg/dL (1.7-2.2) 06/09/18 04:25 Total Bilirubin 0.5 mg/dL (0.2-1.3) 06/09/18 04:25 AST 21 U/L (14-36) 06/09/18 04:25 ALT 32 U/L (7-56) 06/09/18 04:25 Alkaline Phosphatase 80 U/L (38-126) 06/09/18 04:25 Lactate Dehydrogenase 327 U/L (333-699) L 06/08/18 16:23 Total Creatine Kinase 31 U/L (35-230) L 06/08/18 16:23 Troponin I < 0.01 ng/mL 06/09/18 04:25 Total Protein 7.2 g/dL (5.8-8.3) 06/09/18 04:25 Albumin 3.7 g/dL (3.0-4.8) 06/09/18 04:25 Globulin 3.4 gm/dL 06/09/18 04:25 Albumin/Globulin Ratio 1.1 (1.1-1.8) 06/09/18 04:25 Triglycerides 192 mg/dL (35-160) H 06/09/18 07:30 Cholesterol 193 mg/dL (130-200) 06/09/18 07:30 LDL Cholesterol Direct 109 mg/dL (0-129) 06/09/18 07:30 HDL Cholesterol 38 mg/dL (29-60) 06/09/18 07:30 TSH 3rd Generation 0.95 mIU/mL (0.46-4.68) 06/09/18 09:50 Urine Color Yellow (YELLOW) 06/08/18 16:42 Urine Appearance Clear (CLEAR) 06/08/18 16:42 Urine pH 6.0 (4.7-8.0) 06/08/18 16:42 Ur Specific [place] 1.015 (1.005-1.035) 06/08/18 16:42 Urine Protein Negative mg/dL (<30 mg/dL) 06/08/18 16:42 Urine Glucose (UA) >=1000 mg/dL (NEGATIVE) 06/08/18 16:42 Urine Ketones Trace mg/dL (NEGATIVE) H 06/08/18 16:42 Urine Blood Negative (NEGATIVE) 06/08/18 16:42 Urine Nitrate Negative (NEGATIVE) 06/08/18 16:42 Urine Bilirubin Negative (NEGATIVE) 06/08/18 16:42 Urine Urobilinogen 0.2 E.U./dL (<1 E.U./dL) 06/08/18 16:42 Ur Leukocyte Esterase Negative Juan/uL (NEGATIVE) 06/08/18 16:42 - Hospital Course Hospital Course: Patient is a 62-year-old Female with PMH Type 2 Diabetes Mellitus, Hypertension, Hyperlipidemia, Rheumatoid Arthritis, who presented to [facility] ED with complaint of chest pain and abdominal pain. Patient was admitted for chest pain ACS rule out as well as hypertensive urgency. Troponins were negative x 3 and EKG revealed no abnormalities that would be concerning for ACS. As per cardiology patient would need to be scheduled for stress test outpatient. Patient had a CT abdomen/pelvis and abdominal ultrasound for further evaluation of her abdominal pain; both revealed no abnormalities. Patient was reevaluated and stated her abdominal pain had resolved and she was ready to go home. When patient was initially admitted her blood pressure met criteria for hypertensive urgency. Patient was given IV labetolol which helped control her blood pressure. Her home medication metoprolol was resumed and lisinopril was also added for further control. It was also noted that patient's glucose levels were not controlled despite insulin sliding scale during this hospital course evidenced also by a HgA1c level of 9.3. Glipizide was added to help control glucose levels. Patient was instructed to take glipizide in addition to metformin for better control of her glucose levels as well as to follow a low carbohydrate diet. Patient was in agreement with plan and discharged to home. Case discussed with attending Dr. Keya Barrera PGY2 Discharge Exam - Head Exam Head Exam: ATRAUMATIC, NORMAL INSPECTION, NORMOCEPHALIC - Eye Exam Eye Exam: EOMI, Normal appearance - Respiratory Exam Respiratory Exam: Clear to PA & Lateral, UNREMARKABLE. absent: Wheezes, Respiratory Distress - Cardiovascular Exam Cardiovascular Exam: REGULAR RHYTHM, +S1, +S2 - GI/Abdominal Exam GI & Abdominal Exam: Normal Bowel Sounds, Unremarkable - Rectal Exam Rectal Exam: NORMAL INSPECTION - Extremities Exam Extremities exam: normal inspection - Back Exam Back exam: NORMAL INSPECTION - Neurological Exam Neurological exam: Alert, CN II-XII Intact, Oriented x3 - Psychiatric Exam Psychiatric exam: Normal Affect, Normal Mood - Skin Skin Exam: Normal Color, Warm Discharge Plan - Discharge Medications Prescriptions: GlipiZIDE [Glucotrol] 5 mg PO ACB #30 tab Lisinopril [Zestril] 20 mg PO DAILY #30 tab - Follow Up Plan Condition: FAIR Disposition: HOME/ ROUTINE Instructions: High Blood Pressure (DC), Acute Abdomen (Belly Pain), Adult (DC), Diabetic Meal Planning , Chest Pain (DC), Hypertension (DC), Hypertension (GEN) Additional Instructions: 1.Please follow up with Dr. Jefferson for your stress test. 2.You were started on two new medications. Lisinopril is to be taken in addition to metoprolol for control of your blood pressure. Glipizide is to be taken in addition to your metformin for better control of your glucose. 3.Please try maintain a low carbohydrate diet. Referrals: Dustin Jefferson MD [Staff Provider] - <Tyson Laura - Last Filed: 06/09/18 16:40> Provider - Provider Date of Admission: 06/08/18 18:19 Attending physician: Tyson Laura MD Hospital Course - Lab Results Lab Results: Micro Results 06/08/18 16:42 Urine Urine Culture - Final No Growth (<1,000 CFU/ML) Most Recent Lab Values WBC 9.0 10^3/uL (4.5-11.0) 06/09/18 04:25 RBC 4.12 10^6/uL (3.5-6.1) 06/09/18 04:25 Hgb 12.8 g/dL (12.0-16.0) 06/09/18 04:25 Hct 38.2 % (36.0-48.0) 06/09/18 04:25 MCV 92.7 fl (80.0-105.0) 06/09/18 04:25 MCH 31.1 pg (25.0-35.0) 06/09/18 04:25 MCHC 33.5 g/dl (31.0-37.0) 06/09/18 04:25 RDW 13.1 % (11.5-14.5) 06/09/18 04:25 Plt Count 242 10^3/uL (120.0-450.0) 06/09/18 04:25 MPV 9.2 fl (7.0-11.0) 06/09/18 04:25 Gran % 50.0 % (50.0-68.0) 06/09/18 04:25 Lymph % (Auto) 38.7 % (22.0-35.0) H 06/09/18 04:25 [place] % (Auto) 9.4 % (1.0-6.0) H 06/09/18 04:25 Eos % (Auto) 1.8 % (1.5-5.0) 06/09/18 04:25 Baso % (Auto) 0.1 % (0.0-3.0) 06/09/18 04:25 Gran # 4.48 (1.4-6.5) 06/09/18 04:25 Lymph # (Auto) 3.5 (1.2-3.4) H 06/09/18 04:25 [place] # (Auto) 0.8 (0.1-0.6) H 06/09/18 04:25 Eos # (Auto) 0.2 (0.0-0.7) 06/09/18 04:25 Baso # (Auto) 0.01 K/mm3 (0.0-2.0) 06/09/18 04:25 Sodium 139 mmol/L (132-148) 06/09/18 04:25 Potassium 3.9 mmol/L (3.6-5.0) 06/09/18 04:25 Chloride 105 mmol/L (98-107) 06/09/18 04:25 Carbon Dioxide 27 mmol/L (21-33) 06/09/18 04:25 Anion Gap 11 (10-20) 06/09/18 04:25 BUN 16 mg/dL (7-21) 06/09/18 04:25 Creatinine 0.7 mg/dl (0.7-1.2) 06/09/18 04:25 Est GFR ( Amer) > 60 06/09/18 04:25 Est GFR (Non-Af Amer) > 60 06/09/18 04:25 POC Glucose (mg/dL) 207 mg/dL (65-110) H 06/09/18 12:15 Random Glucose 239 mg/dL (70-110) H 06/09/18 04:25 Hemoglobin A1c 9.3 % (4.2-6.5) H 06/09/18 04:25 Calcium 9.0 mg/dL (8.4-10.5) 06/09/18 04:25 Phosphorus 4.2 mg/dL (2.5-4.5) 06/09/18 04:25 Magnesium 1.9 mg/dL (1.7-2.2) 06/09/18 04:25 Total Bilirubin 0.5 mg/dL (0.2-1.3) 06/09/18 04:25 AST 21 U/L (14-36) 06/09/18 04:25 ALT 32 U/L (7-56) 06/09/18 04:25 Alkaline Phosphatase 80 U/L (38-126) 06/09/18 04:25 Lactate Dehydrogenase 327 U/L (333-699) L 06/08/18 16:23 Total Creatine Kinase 31 U/L (35-230) L 06/08/18 16:23 Troponin I < 0.01 ng/mL 06/09/18 04:25 Total Protein 7.2 g/dL (5.8-8.3) 06/09/18 04:25 Albumin 3.7 g/dL (3.0-4.8) 06/09/18 04:25 Globulin 3.4 gm/dL 06/09/18 04:25 Albumin/Globulin Ratio 1.1 (1.1-1.8) 06/09/18 04:25 Triglycerides 192 mg/dL (35-160) H 06/09/18 07:30 Cholesterol 193 mg/dL (130-200) 06/09/18 07:30 LDL Cholesterol Direct 109 mg/dL (0-129) 06/09/18 07:30 HDL Cholesterol 38 mg/dL (29-60) 06/09/18 07:30 TSH 3rd Generation 0.95 mIU/mL (0.46-4.68) 06/09/18 09:50 Urine Color Yellow (YELLOW) 06/08/18 16:42 Urine Appearance Clear (CLEAR) 06/08/18 16:42 Urine pH 6.0 (4.7-8.0) 06/08/18 16:42 Ur Specific [place] 1.015 (1.005-1.035) 06/08/18 16:42 Urine Protein Negative mg/dL (<30 mg/dL) 06/08/18 16:42 Urine Glucose (UA) >=1000 mg/dL (NEGATIVE) 06/08/18 16:42 Urine Ketones Trace mg/dL (NEGATIVE) H 06/08/18 16:42 Urine Blood Negative (NEGATIVE) 06/08/18 16:42 Urine Nitrate Negative (NEGATIVE) 06/08/18 16:42 Urine Bilirubin Negative (NEGATIVE) 06/08/18 16:42 Urine Urobilinogen 0.2 E.U./dL (<1 E.U./dL) 06/08/18 16:42 Ur Leukocyte Esterase Negative Juan/uL (NEGATIVE) 06/08/18 16:42 Attending/Attestation - Attestation I have personally seen and examined this patient.: Yes I have fully participated in the care of the patient.: Yes I have reviewed all pertinent clinical information, including history, physical exam and plan: Yes Notes (Text): 06/09/18 16:31 62 year old female with past medical history of diabetes, hypertension, and dyslipidemia who presented with complaint of chest pain, abdominal pain and dizziness. She was found to have hypertensive urgency with blood pressure 224/104 requiring iv labetalol. Following day her metoprolol was resumed and lisinopril 20 mg was added with improvement of her blood pressure. She admitted to high salt intake and was counselled on 2gm sodium diet. Serial cardiac enzymes were negative and ACS was ruled out. She was seen by cardiology who recommended outpatient stress test. CT abd/pelvis and ultrasound abdomen were negative for acute findings. CT head was negative as well. Patient is discharged home to follow up with her pmd. Follow up with soil conservation aide for outpatient stress test. Counselled on low salt diet. Tyson Laura MD Hospitalist.
--- NOTE | 2018-06-09 17:46 | CON ---
DATE OF CONSULTATION: 06/09/2018 TYPE OF CONSULTATION: Cardiac evaluation. REASON FOR CONSULTATION: Admitted with abdominal pain, chest pain. BRIEF CLINICAL HISTORY: This is a 62-year-old female with past medical history significant for hypertension, type 2 diabetes, hyperlipidemia, rheumatoid arthritis, who came to the emergency room with complaint of abdominal pain since one week off and on. Yesterday, the patient had one episode of chest pain. Denies any chest pain, dizziness, exertional chest pain prior to that, though she complains that she had one episode of chest pain one year ago and then completely subsided. No history of dyspnea on exertion or chest pain on exertion. Of note, it is important to mention that the patient came in with uncontrolled hypertension. Admitting blood pressure was 224/104. At that time, the patient felt heaviness in chest, which is completely resolved. PAST MEDICAL HISTORY: Significant for type 2 diabetes, hypertension, hyperlipidemia, and rheumatoid arthritis. FAMILY HISTORY: No history of family history significant for coronary artery disease. SOCIAL HISTORY: Denies any history of alcohol abuse. Denies any history of tobacco abuse. CURRENT MEDICATIONS: The patient is taking at home simvastatin 10 mg daily, Lopressor 50 twice a day, metformin 500 mg twice a day. ALLERGIES: NO KNOWN DRUG ALLERGIES. REVIEW OF SYSTEMS: As per HPI. PHYSICAL EXAMINATION: VITAL SIGNS: Height of the patient is 5 feet 2 inches. Weight of the patient is 154 pounds. Body mass index 30 kg/m2. Temperature afebrile, heart rate 56, blood pressure 153/93. HEENT: PERRLA. Extraocular muscles intact. NECK: Supple. No carotid bruits or thyromegaly. CHEST: Clear to auscultation. HEART: S1 and S2, regular. ABDOMEN: Soft. EXTREMITIES: Clubbing and cyanosis negative. LABORATORY DATA: Blood workup as follows. WBC 9, hemoglobin 12.8, hematocrit 38.2, platelet count 242. Chemistries show a sodium of 139, potassium 3.9, chloride 105, carbon dioxide 27, anion gap of 11, BUN 16, creatinine was 0.7. Troponin remains 0.01, negative. EKG showed normal sinus, no acute ST-T changes noted. As mentioned, EKG shows normal sinus rhythm, rate of 70, baseline artifact and poor RR progression, but no acute ST-T changes noted, possible left atrial enlargement. IMPRESSION: A 62-year-old female, mildly obese, history of hypertension, diabetes, rheumatoid arthritis, admitted with abdominal pain, admitting blood pressure 224/104, one episode of chest pain. A year ago, she had an episode of chest pain, but no evidence of acute myocardial infarction. EKG essentially shows no ischemia. Troponin remains negative. RECOMMENDATIONS: We will get lipid profile, TSH, and hemoglobin A1c. We will get echo and consider stress test as outpatient since the patient has abdominal pain and going for ultrasound as n.p.o. For risk stratification, suggest a stress test, but no evidence of acute GA. Also, the patient's blood pressure is not well controlled. The patient at home was on metoprolol 50 twice a day. We will resume 50 twice a day and will add on lisinopril 20 mg with p.r.n. hydralazine to assess the need to increase more lisinopril to up to 40. We can go up depending upon the blood pressure response. If remains stable, blood pressure is controlled, and cleared from GI, the patient can be discharged home. Follow up with stress test as outpatient. We will get echo today. I will follow with you. Thank you Dr. Laura for providing us the opportunity in taking care of the patient. Dustin Jefferson MD cc: Tyson Laura MD
== END 2018-06-09 17:17 | disposition home or self-care (01) ==
LOC: ED 15:36 → INTOOBSV 18:19 → ERH 18:19 → 2RNO 21:07
PROVIDERS: ADMIT Internal Medicine; ATTEND Internal Medicine
DX: I16.0 Hypertensive urgency (principal); E11.65 Type 2 diabetes mellitus with hyperglycemia; E78.5 Hyperlipidemia, unspecified; M06.9 Rheumatoid arthritis, unspecified; Z79.84 Long term (current) use of oral hypoglycemic drugs; Z91.14 Patient's other noncompliance with medication regimen; Z23 Encounter for immunization
CPT/HCPCS: 36415; 70450; 71045; 74176; 76700; 80053; 80061; 81003; 82550; 82948; 83036; 83615; 83735; 84100; 84443; 84484; 85025; 87040; 87086; 90471; 90472; 90674; 90732; 93005; 93306; 96372; 99284; G0378; J1650